=== PATIENT | male | born 1990 | race Caucasian/White ===

== ENCOUNTER 2020-12-24 22:52 | Emergency (ER) | payer SELFPAY ==
[~2020-12-24] VITALS: Ht 160 cm; Wt 58.0 kg
[2020-12-24] MEDS ORDERED: IBUPROFEN 400MG TABLET PO ONE (23:30)
[2020-12-24] MEDS ORDERED: IBUP-2029 MT (23:42)
[2020-12-25 00:11] VITALS: BP 138/90
== END 2020-12-25 00:17 | disposition home or self-care (01) ==
LOC: ER 22:52
DX: M25.571 Pain in right ankle and joints of right foot (principal); E11.9 Type 2 diabetes mellitus without complications
CPT/HCPCS: 73610; 82962; 99283